=== PATIENT | female | born 1990 ===

== ENCOUNTER 2023-12-11 01:52 | Emergency (ER) | payer OTHER, SELFPAY ==
--- NOTE | ~2023-12-11 | CT_ITS ---
EXAMINATION: CT ABDOMEN AND PELVIS WITH CONTRAST CLINICAL INFORMATION: Reason for Exam severe nausea and pain after gastric sleeve COMPARISON: None available. TECHNIQUE: Multidetector volumetric images were obtained from the superior aspect of the liver through the pubic symphysis following administration 85 mL of Omnipaque 350 intravenous contrast. Sagittal and coronal reformatted images were obtained on the technologist's workstation. Oral contrast: No This CT examination was performed using dose optimization techniques as appropriate, variously including the following: *Automated exposure control *Adjustment of mA and/or kV according to patient size (this includes techniques or standardized protocols for targeted exams where dose is matched to indication/reason for exam; i.e. extremities or head) *Use of iterative reconstruction technique DLP: 890 mGy-cm FINDINGS: LUNG BASES: The visualized lung bases are unremarkable. LIVER, GALLBLADDER, AND BILIARY TREE: A small focal region of hypoattenuation adjacent to the falciform ligament could be due to focal fatty infiltration or alterations in hepatic perfusion. The gallbladder is unremarkable with no evidence of radiopaque gallstones, gallbladder wall thickening, or obvious pericholecystic inflammatory changes. PANCREAS: Unremarkable. SPLEEN: Unremarkable. ADRENAL GLANDS: Unremarkable. KIDNEYS AND URETERS: Bilateral nephrograms are symmetric. No hydronephrosis or obstructing calculus identified. BLADDER: Mildly distended and grossly unremarkable. GASTROINTESTINAL TRACT: Suture line along the stomach in keeping with history of sleeve gastrectomy. No evidence of bowel obstruction or significant wall thickening. The appendix is unremarkable. No free fluid or free air is seen. ABDOMINAL WALL: No significant hernia is appreciated. LYMPH NODES: Normal. VASCULAR: Unremarkable. PELVIC VISCERA: Unremarkable for patient age. OSSEOUS STRUCTURES: Unremarkable. CT/CT abdomen pelvis w IV con IMPRESSION: No acute findings identified in the abdomen/pelvis.
[2023-12-11 02:04] VITALS: BP 152/87; PULSE 102; RESP 16; TEMP 36.5; O2SAT 100
[2023-12-11 02:13] VITALS: BMI 43.4
[2023-12-11 02:34] LABS: MANUAL DIFF FLAG NO
[2023-12-11 02:36] LABS: Basophils Percent Auto 0.4 % (0-2); Eosinophils Percent Auto 0.9 % (0-4); Hematocrit 43.1 % (37.0-47.0); Hemoglobin 14.2 g/dl (12.0-16.0); Imm Gran Abs Auto 0.01 X10*3/uL (0.00-0.03); Imm Gran Pct Auto 0.2 % (0.0-0.4); Lymphocytes Absolute Auto 1.6 X10*3/uL (1.2-4.9); Lymphocytes Percent Auto 35.5 % (20-40); Mean Corpuscular HGB Conc 32.9 g/dl (31.0-35.0); Mean Corpuscular Hemoglobin 29.1 pg (27.0-33.0); Mean Corpuscular Volume 88.3 fL (80.0-98.0); Monocytes Absolute Auto 0.4 X10*3/uL (0.1-1.2); Monocytes Percent Auto 9.7 % (2-11); Neutrophils Absolute Auto 2.4 x10*3/uL (2.0-8.3); Neutrophils Percent Auto 53.3 % (45-73); Platelet Count 137 X10*3/uL (160-400); Red Blood Count 4.88 X10*6/uL (4.20-5.50); Red Cell Distribution Width 15.4 % (11.0-16.0); White Blood Count 4.5 X10*3/uL (4.8-10.8)
--- NOTE | 2023-12-11 02:39 | PC.NURSE ---
assumed care of pt at 0230
[2023-12-11] MEDS: ondansetron HCL 4 MG/2 ML VIAL IVPUSH (02:48)
[2023-12-11] MEDS: 0.9 % Sodium Chloride 1,000 ML 999 ML IV ×3 (02:48→03:52)
--- NOTE | 2023-12-11 02:50 | ED_ITS ---
HPI - Nausea/Vomiting/Diarrhea General Chief complaint: Nausea/Vomiting/Diarrhea Stated complaint: Nausea/Recent bypass surgery Time Seen by Provider: 12/11/23 02:16 Source: patient Mode of arrival: ambulatory Limitations: no limitations History of Present Illness HPI Narrative: 33 yo female s/p laparascopic gastric sleeve with Dr. Murillo at [facility] states she did well until this past week when her nausea has become so bad she can barely drink water or her shakes. She feels weak and tired. Gets dizzy when she stands. She is passing gas has not had BM. Taking her tylenol, pantoprazole as Rx and miralax but not having BMs. MD elicited complaint: nausea Onset (ago): week(s) (1) Associated nausea: Yes Associated abdominal pain: No Severity: severe Exacerbating factors: eating Relieving factors: none Associated symptoms: loss of appetite, malaise, nausea/vomiting, weakness and other (dizziness) Related Data Previous Rx's ?Medication ?Instructions ?Recorded ondansetron 4 mg disintegrating 4 mg PO Q8H PRN nausea and 12/11/23 tablet vomiting #20 tabs Allergies Allergy/AdvReac Type Severity Reaction Status Date / Time cephalexin [From KEFLEX] Allergy Unknown RASH Verified 12/11/23 02:15 penicillin G Allergy Unknown Rash Verified 12/11/23 02:15 Penicillins [PENICILLINS] Allergy Unknown RASH Verified 12/11/23 02:15 Review of Systems 2 Review of Systems: Constitutional : No Weight loss, No Fever, No Chills ENT/Mouth : No sore throat, No Rhinorrhea Eyes: No Swelling, No Redness Cardiovascular : No Chest Pain, No SOB, NoEdema Respiratory : No Cough, No Sputum, No Wheezing Gastrointestinal : Positive Nausea, no Vomiting, no Diarrhea, no abdominal Pain, No Hematochezia, No Melena Genitourinary : No Dysuria, No Urinary Frequency, No Hematuria, No Urgency Musculoskeletal : No joint pain, No Myalgias, No Joint Swelling Skin : No Skin Lesions, No rash Neuro : pos Weakness, No Numbness, pos Dizziness, No Headache Psych : No Anxiety/Panic, No Depression All other systems reviewed and are negative. Gastrointestinal: Gastrointestinal: Reports nausea PMFSH Past Medical History Attestation statement: The following information was validated with the patient. Source: old records reviewed Medical History (Updated 12/11/23 @ 06:00 by Mary Carmen Amezcua DO) Obesity Surgical History (Updated 12/11/23 @ 02:53 by Mary Carmen Amezcua DO) S/P gastric sleeve procedure Social History Social History (Updated 12/11/23 @ 02:53 by Mary Carmen Amezcua DO) Patient Tobacco Use Status: Never used Tobacco Smoked in Last 30 Days: No Advance Directives: No Advance Directives Information Provided: Yes Do you have a plan to hurt others: No Plan Patient : No Physical Exam 2 Vital Signs: Vital Signs: Last Vital Signs Temp 97.9 F 12/11/23 04:01 Pulse 77 12/11/23 04:01 Resp 18 12/11/23 04:01 BP 139/51 L 12/11/23 04:01 Pulse Ox 100 12/11/23 04:01 O2 Del Method Room Air 12/11/23 04:01 BMI result Body Mass Index 43.4 Appearance: Alert. Oriented X3. No acute distress. Eyes: Pupils equal, round and reactive to light. ENT: Pharynx very dry MM Neck: Normal inspection. Neck supple. CVS: Normal heart rate and rhythm. Pulses normal. Respiratory: No respiratory distress. Breath sounds normal. Abdomen: Soft and nontender. incisions are c/d/i Skin: Skin warm and dry. pale skin color. poor skin turgor. Extremities: No lower extremity edema. No calf ttp Neuro: Oriented X 3. No motor deficit. No sensory deficit. Medications Administered Generic Name Dose Route Start Last Admin Trade Name Freq PRN Reason Stop Dose Admin Dextrose/Sodium Chloride 1,000 mls @ 100 mls/hr 12/11/23 03:00 12/11/23 03:52 D5ns IVCONT 50 mls/hr .Q10H JACEK Administration Discontinued Medications Generic Name Dose Route Start Last Admin Trade Name Freq PRN Reason Stop Dose Admin Sodium Chloride 1,000 mls @ 999 mls/hr 12/11/23 02:30 12/11/23 02:48 Ns IV 12/11/23 03:30 999 mls/hr .Q1H1M JACEK Administration Sodium Chloride 1,000 mls @ 999 mls/hr 12/11/23 02:30 12/11/23 03:52 Ns IV 12/11/23 03:30 999 mls/hr .Q1H1M JACEK Administration Sodium Chloride 1,000 mls @ 999 mls/hr 12/11/23 02:23 12/11/23 02:48 Ns IV 12/11/23 03:23 999 mls/hr .Q1H1M ONE Administration Iohexol 100 ml 12/11/23 03:26 12/11/23 03:26 Iohexol 350 Mg/Ml 100 Ml Infus..Btl IV 12/11/23 03:27 85 ml ONCE ONE Administration Ondansetron HCl 4 mg 12/11/23 02:17 12/11/23 02:48 Ondansetron Hcl 4 Mg/2 Ml Vial IVPUSH 12/11/23 02:18 4 mg ONCE ONE Administration Pantoprazole Sodium 40 mg 12/11/23 05:09 12/11/23 05:37 Pantoprazole Sodium 40 Mg/10 Ml Vial IVPUSH 12/11/23 05:10 40 mg ONCE ONE Administration Medical Decision Making Medical Decision Making [facility] Narrative: 33 yo female with recent laparascopic gastric sleeve 11/13 at [facility] here with severe nausea at this time will need basic labs, IVF x 3L, CT scan for any issues with surgery she denies infectious symptoms. She is not able to tolerate oral contrast. Differential Diagnosis Differential Diagnoses: The differential diagnosis associated with the presentation includes dehydration, hernia, obstruction, esophagitis Admission/Observation Consideration of admission/observation: Escalation of care including admission/observation considered K repleted, tolerating PO repeat labs reassuring, tolerating PO at this time stable for DC plans to call Dr. Murillo's office this AM Lab Data [facility] Lab Attestation statement: I reviewed the patient's lab results. 12/11/23 02:31 12/11/23 05:46 Labs: Lab Results 12/11/23 12/11/23 12/11/23 Range/Units 02:31 03:27 05:46 WBC 4.5 L (4.8-10.8) X10*3/uL RBC 4.88 (4.20-5.50) X10*6/uL Hgb 14.2 (12.0-16.0) g/dl Hct 43.1 (37.0-47.0) % MCV 88.3 (80.0-98.0) fL MCH 29.1 (27.0-33.0) pg MCHC 32.9 (31.0-35.0) g/dl RDW 15.4 (11.0-16.0) % Plt Count 137 L (160-400) X10*3/uL MPV 12.0 (9.4-12.3) fL Immature Gran % (Auto) 0.2 (0.0-0.4) % Neut % (Auto) 53.3 (45-73) % Lymph % (Auto) 35.5 (20-40) % [place] % (Auto) 9.7 (2-11) % Eos % (Auto) 0.9 (0-4) % Baso % (Auto) 0.4 (0-2) % Lymph # (Auto) 1.6 (1.2-4.9) X10*3/uL [place] # (Auto) 0.4 (0.1-1.2) X10*3/uL Eos # (Auto) 0.0 (0.0-0.4) X10*3/uL Baso # (Auto) 0.0 (0.0-0.2) X10*3/uL Abs Immat Gran (auto) 0.01 (0.00-0.03) X10*3/uL Absolute Neuts (auto) 2.4 (2.0-8.3) x10*3/uL Absolute Nucleated RBC 0.000 (0.0-0.012) X10*3/uL Nucleated RBC % (auto) 0.0 (0.0-0.2) /100WBC Sodium 140 140 (135-145) mmol/L Potassium 3.2 L 3.3 (3.3-5.1) mmol/L Chloride 101 108 (96-108) mmol/L Carbon Dioxide 19 L 18 L (22-29) mmol/L Anion Gap 23 H 17 (12-20) BUN 6 L 5 L (9-16) mg/dL Creatinine 0.78 0.62 (0.5-1.4) mg/dL Estim Creat Clear Calc 134.5 169.2 Estimated GFR > 60 > 60 Random Glucose 95 72 (60-115) mg/dL Calcium 9.7 8.0 L D (8.4-10.2) mg/dL Magnesium 1.7 (1.6-2.6) mg/dL Total Bilirubin 0.8 (0.0-1.0) mg/dL Direct Bilirubin 0.3 (0.0-0.5) mg/dL AST 32 H (5-31) U/L ALT 32 H (0-31) U/L Alkaline Phosphatase 61 (39-117) U/L Total Protein 7.6 (6.5-8.0) g/dL Albumin 4.2 (3.5-5.0) g/dL Lipase 49 (8-78) U/L Urine Color Yellow Urine Appearance Cloudy Urine pH 5.5 (5.0-9.0) Ur Specific [place] >= 1.030 H (1.005-1.025) Urine Protein 100 (2+) H (Neg-Trace) mg/dL Urine Glucose (UA) Negative (Negative) mg/dL Urine Ketones >=160 (Negative) mg/dL Urine Blood Trace H (Negative) Urine Nitrite Negative (Negative) Ur Leukocyte Esterase Negative (Negative) Urine RBC 3-5 H (0-2) /HPF Urine WBC 0-5 (0-5) /HPF Ur Squamous Epith Cells 11-20 (0-2) /HPF Urine Bacteria Trace (None Seen) Hyaline Casts 11-20 (0-2) /LPF Independent Interpretation I performed an independent interpretation of an: CT Scan (no acute post surgical issue) Radiology Impression Discussion of test interpretation with radiology: I have reviewed the radiologist's reading. Critical Care Time Critical Care Time Critical Care Time: Yes Total Critical Care Time: 60 Attestation: 3L of IVF, repeat labs, repeat assessments, volume resuscitation I attest to this time spent taking care of the patient Discharge Plan Discharge Clinical Impression: Acute dehydration, Acute hypokalemia, Nausea Patient Disposition: Home, Self-Care Instructions: Dehydration (ED), Hypokalemia (ED), Acute Nausea and Vomiting (ED) Additional Instructions: you were given 3 bags of IVF for dehydration in the ER today. you were also give IV protonix so you do not need to take your pantoprazole today. Your urine was very dehydrated. Your CT scan was normal no acute findings. please follow up with Dr. Murillo's office today. return for any worsening symptoms or concerns. stay hydrated Prescriptions: New ondansetron 4 mg tablet,disintegrating 4 mg PO Q8H PRN (Reason: nausea and vomiting) Qty: 20 0RF Print Language: Anguillan
[2023-12-11 02:52] LABS: Alanine Aminotransferase 32 U/L (0-31); Albumin Level 4.2 g/dL (3.5-5.0); Alkaline Phosphatase 61 U/L (39-117); Anion Gap 23 (12-20); Aspartate Amino Transferase 32 U/L (5-31); Bilirubin Direct 0.3 mg/dL (0.0-0.5); Bilirubin Total 0.8 mg/dL (0.0-1.0); Blood Urea Nitrogen 6 mg/dL (9-16); Calcium 9.7 mg/dL (8.4-10.2); Carbon Dioxide 19 mmol/L (22-29); Chloride 101 mmol/L (96-108); Creatinine Clr Calc Pharmacy 134.5; Estimated Glomerular Filt Rate > 60; Glucose Random 95 mg/dL (60-115); Lipase 49 U/L (8-78); Magnesium 1.7 mg/dL (1.6-2.6); Potassium 3.2 mmol/L (3.3-5.1); Sodium 140 mmol/L (135-145); Total Protein 7.6 g/dL (6.5-8.0)
[2023-12-11] MEDS: iohexoL 350 MG/ML 100 ML INFUS..BTL IV (03:26)
[2023-12-11 03:33] LABS: Appearance Urine Cloudy; Color Urine Yellow; Glucose Urine UA Negative (Negative); Leukocyte Esterase Urine Negative (Negative); Nitrite Urine Negative (Negative); PH 5.5 (5.0-9.0); Specific Gravity - Urine >= 1.030 (1.005-1.025); UMIC TRIGGER UACC YES; Urine Blood Trace (Negative); Urine Ketones >=160 mg/dL (Negative); Urine Protein 100 (2+) mg/dL (Neg-Trace)
[2023-12-11 03:46] LABS: Bacteria Urine Trace (None Seen); WBC Urine 0-5 /HPF (0-5)
[2023-12-11] MEDS: Dextrose 5 % and 0.9 % NaCl 1,000 ML 50 ML IVCONT (03:52)
[2023-12-11 04:01] VITALS: BP 139/51; PULSE 77; RESP 18; TEMP 36.6; O2SAT 100
[2023-12-11] MEDS: Pantoprazole Sodium 40 MG/10 ML VIAL IVPUSH (05:37)
[2023-12-11 06:05] LABS: Anion Gap 17 (12-20); Blood Urea Nitrogen 5 mg/dL (9-16); Carbon Dioxide 18 mmol/L (22-29); Chloride 108 mmol/L (96-108); Creatinine Clr Calc Pharmacy 169.2; Estimated Glomerular Filt Rate > 60; Glucose Random 72 mg/dL (60-115); Potassium 3.3 mmol/L (3.3-5.1); Sodium 140 mmol/L (135-145)
[2023-12-11] MEDS: Potassium Chloride Packet 20 MEQ PACKET 40 MEQ PO (06:37)
[2023-12-11 06:46] VITALS: BP 124/60; PULSE 88; RESP 18; TEMP 36.6; O2SAT 99
== END 2023-12-11 07:03 | disposition home or self-care (01) ==
PROVIDERS: Emergency Provider Emergency Medicine; PCP Internal Medicine
DX: E86.0 Dehydration (principal); E87.6 Hypokalemia; R11.0 Nausea; Z98.84 Bariatric surgery status
CPT/HCPCS: 36415; 74177; 80048; 80076; 81001; 83690; 83735; 85025; 96374; 96375; 99284; C9113; J2405; Q9967

== ENCOUNTER 2024-01-05 00:56 | Emergency (ER) | payer OTHER, SELFPAY ==
--- NOTE | ~2024-01-05 | CT_ITS ---
EXAMINATION: CT ABDOMEN AND PELVIS WITHOUT CONTRAST CLINICAL INFORMATION: Flank pain and hematuria. COMPARISON: None available. TECHNIQUE: Multidetector volumetric imaging was performed from the superior aspect of the liver through the pubic symphysis. Sagittal and coronal reformatted images were obtained on the technologist's workstation. This CT examination was performed using dose optimization techniques as appropriate, variously including the following: *Automated exposure control *Adjustment of mA and/or kV according to patient size (this includes techniques or standardized protocols for targeted exams where dose is matched to indication/reason for exam; i.e. extremities or head) *Use of iterative reconstruction technique DLP: 938 mGy-cm FINDINGS: LUNG BASES: The visualized lung bases are unremarkable. LIVER, GALLBLADDER, AND BILIARY TREE: The liver is normal in size, shape, and attenuation. No focal hepatic lesion or biliary ductal dilatation is present. The gallbladder is unremarkable with no evidence of radiopaque gallstones, gallbladder wall thickening, or obvious pericholecystic inflammatory changes. PANCREAS: Unremarkable. SPLEEN: Unremarkable. ADRENAL GLANDS: Unremarkable. KIDNEYS AND URETERS: The kidneys are normal in size, shape, and attenuation. There is mild right hydronephrosis and hydroureter extending into the pelvis to the level of a 2 mm calculus right ureterovesicular junction. BLADDER: Unremarkable. GASTROINTESTINAL TRACT: The small and large bowel are unremarkable. The appendix is unremarkable. ABDOMINAL WALL: No significant hernia is appreciated. LYMPH NODES: Normal. VASCULAR: Unremarkable. PELVIC VISCERA: Unremarkable. OSSEOUS STRUCTURES: Unremarkable. CT/CT abdomen pelvis wo IV con IMPRESSION: Mild right hydronephrosis and hydroureter extending into the pelvis to the level of a 2 mm calculus at the right ureterovesicular junction. Fleischner guidelines were followed.
[2024-01-05 01:57] VITALS: BP 138/80; PULSE 65; RESP 20; TEMP 36.4; O2SAT 100; BMI 40.9
--- NOTE | 2024-01-05 02:11 | MHC.EDTECH ---
PATIENT BLOOD DRAWN AND URINE SAMPLE COLLECTED AND SENT TO LAB .
[2024-01-05 02:15] LABS: Basophils Percent Auto 0.2 % (0-2); Eosinophils Absolute Auto 0.1 X10*3/uL (0.0-0.4); Eosinophils Percent Auto 1.2 % (0-4); Hematocrit 41.7 % (37.0-47.0); Hemoglobin 13.6 g/dl (12.0-16.0); Imm Gran Abs Auto 0.01 X10*3/uL (0.00-0.03); Imm Gran Pct Auto 0.2 % (0.0-0.4); Lymphocytes Absolute Auto 1.5 X10*3/uL (1.2-4.9); Lymphocytes Percent Auto 26.4 % (20-40); MANUAL DIFF FLAG NO; Mean Corpuscular HGB Conc 32.6 g/dl (31.0-35.0); Mean Corpuscular Hemoglobin 29.6 pg (27.0-33.0); Mean Corpuscular Volume 90.7 fL (80.0-98.0); Mean Platelet Volume 12.2 fL (9.4-12.3); Monocytes Absolute Auto 0.6 X10*3/uL (0.1-1.2); Monocytes Percent Auto 10.2 % (2-11); Neutrophils Absolute Auto 3.5 x10*3/uL (2.0-8.3); Neutrophils Percent Auto 61.8 % (45-73); Platelet Count 132 X10*3/uL (160-400); Red Cell Distribution Width 16.8 % (11.0-16.0); White Blood Count 5.7 X10*3/uL (4.8-10.8)
[2024-01-05 02:17] LABS: Appearance Urine Cloudy; Color Urine Dark Yellow; Glucose Urine UA Negative (Negative); Leukocyte Esterase Urine Negative (Negative); Nitrite Urine Negative (Negative); Specific Gravity - Urine >= 1.030 (1.005-1.025); UMIC TRIGGER UACC YES; UPreg QC Valid YES; Urine Blood Small (1+) (Negative); Urine Ketones 80 mg/dL (Negative); Urine Pregnancy NEGATIVE (NEGATIVE); Urine Protein Trace mg/dL (Neg-Trace)
[2024-01-05 02:29] LABS: Alanine Aminotransferase 69 U/L (0-31); Albumin Level 4.3 g/dL (3.5-5.0); Alkaline Phosphatase 59 U/L (39-117); Anion Gap 17 (12-20); Aspartate Amino Transferase 34 U/L (5-31); Bilirubin Direct 0.4 mg/dL (0.0-0.5); Bilirubin Total 1.2 mg/dL (0.0-1.0); Blood Urea Nitrogen 9 mg/dL (9-16); Calcium 9.5 mg/dL (8.4-10.2); Carbon Dioxide 21 mmol/L (22-29); Chloride 105 mmol/L (96-108); Creatinine Clr Calc Pharmacy 128.4; Estimated Glomerular Filt Rate > 60; Glucose Random 104 mg/dL (60-115); Lipase 45 U/L (8-78); Potassium 3.8 mmol/L (3.3-5.1); Sodium 139 mmol/L (135-145); Total Protein 7.3 g/dL (6.5-8.0)
[2024-01-05 03:11] LABS: Bacteria Urine None Seen (None Seen); Calcium Oxalate Crystals Urine Present; WBC Urine 0-5 /HPF (0-5)
[2024-01-05 04:38] VITALS: BP 143/82; PULSE 75; RESP 16; TEMP 36.3; O2SAT 95
--- NOTE | 2024-01-05 06:03 | ED.GENADULT ---
HPI - General Adult General Chief complaint: Abdominal Pain Stated complaint: rt side pain goes to the back Time Seen by Provider: 01/05/24 05:57 History of Present Illness HPI narrative: The patient is a 33-year-old female who says that at around 22:00 this evening, approximately 4 hours prior to arrival, she developed pain in her right lower back radiating into her right groin. She quite uncomfortable because of this this pain. She had some loose stool. She denies urinary discomfort. She does not think she has had a fever. No nausea or vomiting. She has never had pain like this before. Related Data Previous Rx's ?Medication ?Instructions ?Recorded ondansetron 4 mg disintegrating 4 mg PO Q8H PRN nausea and 12/11/23 tablet vomiting #20 tabs ibuprofen 600 mg tablet 600 mg PO Q6H PRN pain #14 tabs 01/05/24 ondansetron 4 mg disintegrating 4 mg PO Q6H PRN nausea and 01/05/24 tablet vomiting #10 tabs oxycodone 5 mg tablet 5 mg PO Q6H PRN pain #12 tabs 01/05/24 Allergies Allergy/AdvReac Type Severity Reaction Status Date / Time cephalexin [From KEFLEX] Allergy Unknown RASH Verified 01/05/24 01:59 penicillin G Allergy Unknown Rash Verified 01/05/24 01:59 Penicillins [PENICILLINS] Allergy Unknown RASH Verified 01/05/24 01:59 Review of Systems Review of Systems: Yes all other systems are reviewed and are negative [facility] Past Medical History Medical History (Updated 01/05/24 @ 06:12 by Piop Barfield MD) Obesity Surgical History (Updated 12/11/23 @ 02:53 by Mary Carmen Amezcua DO) S/P gastric sleeve procedure Social History Social History (Updated 12/11/23 @ 02:53 by Mary Carmen Amezcua DO) Patient Tobacco Use Status: Never used Tobacco Advance Directives: No Advance Directives Information Provided: Yes Do you have a plan to hurt others: No Plan Physical Exam ED Vital Signs: Vital Signs - 24 hr 01/05/24 01:57 01/05/24 04:38 01/05/24 07:34 Temperature 97.6 F 97.3 F 97.2 F Pulse Rate 65 75 73 Respiratory Rate 20 16 16 Blood Pressure 138/80 143/82 H 118/65 Pulse Oximetry 100 95 100 Oxygen Delivery Method Room Air Room Air Room Air BMI result Body Mass Index 40.9 Const Other: The patient is awake, alert, pleasant, cooperative. She looks mildly uncomfortable. HENMT Other: Face is symmetrical. Mucous membranes moist. Eyes Other: Pupils are round equal, conjunctivae clear Neck Other: Moving her neck easily Resp Effort & Inspection: normal respiratory effort Auscultation: clear to auscultation bilaterally Cardio Rate: regular rate Rhythm: regular rhythm Heart sounds: S1 normal heart sound present and S2 normal heart sound present GI Other: The abdomen is soft. There is some right-sided tenderness with bimanual palpation of the right kidney area. No rebound or guarding. Back/Spine/Pelvis Other: Right-sided CVA percussion tenderness Skin Other: The skin is dry and unremarkable Neuro Other: The patient is awake, alert, appropriate, mental status is normal. Grossly neurologically intact with a normal gait. Extrem Other: No peripheral edema Medications Administered Discontinued Medications Generic Name Dose Route Start Last Admin Trade Name Freq PRN Reason Stop Dose Admin Sodium Chloride 1,000 mls @ 999 mls/hr 01/05/24 06:15 01/05/24 07:35 Ns IV 01/05/24 07:15 Infused .Q1H1M JACEK Infusion Ketorolac Tromethamine 15 mg 01/05/24 06:03 01/05/24 06:36 Ketorolac Tromethamine 15 Mg/Ml Vial IVPUSH 01/05/24 06:04 15 mg ONCE ONE Administration Medical Decision Making Medical Decision Making [facility] Narrative: The patient is a 33-year-old female who presents with 4 hours of right-sided pain. Her presentation seemed suggestive of a possible ureteral stone. She had labs that showed a normal white count and differential, unremarkable basic metabolic panel, LFTs with mild transaminitis, and a urinalysis with 1+ blood and 3-5 red cells. No significant signs of infection. A CT scan of the abdomen and pelvis without contrast was done that showed a calculus at the right ureterovesicular junction (UVJ). The patient was given a dose of ketorolac with significant improvement in her pain. She was also given a L of IV normal saline. She felt considerably better. She will be discharged with prescriptions for ibuprofen, oxycodone, and ondansetron. She will be referred to Urology. Lab Data 01/05/24 02:09 01/05/24 02:09 Labs: Lab Results 01/05/24 01/05/24 Range/Units 02:07 02:09 WBC 5.7 (4.8-10.8) X10*3/uL RBC 4.60 (4.20-5.50) X10*6/uL Hgb 13.6 (12.0-16.0) g/dl Hct 41.7 (37.0-47.0) % MCV 90.7 (80.0-98.0) fL MCH 29.6 (27.0-33.0) pg MCHC 32.6 (31.0-35.0) g/dl RDW 16.8 H (11.0-16.0) % Plt Count 132 L (160-400) X10*3/uL MPV 12.2 (9.4-12.3) fL Immature Gran % (Auto) 0.2 (0.0-0.4) % Neut % (Auto) 61.8 (45-73) % Lymph % (Auto) 26.4 (20-40) % [place] % (Auto) 10.2 (2-11) % Eos % (Auto) 1.2 (0-4) % Baso % (Auto) 0.2 (0-2) % Lymph # (Auto) 1.5 (1.2-4.9) X10*3/uL [place] # (Auto) 0.6 (0.1-1.2) X10*3/uL Eos # (Auto) 0.1 (0.0-0.4) X10*3/uL Baso # (Auto) 0.0 (0.0-0.2) X10*3/uL Abs Immat Gran (auto) 0.01 (0.00-0.03) X10*3/uL Absolute Neuts (auto) 3.5 (2.0-8.3) x10*3/uL Absolute Nucleated RBC 0.000 (0.0-0.012) X10*3/uL Nucleated RBC % (auto) 0.0 (0.0-0.2) /100WBC Sodium 139 (135-145) mmol/L Potassium 3.8 (3.3-5.1) mmol/L Chloride 105 (96-108) mmol/L Carbon Dioxide 21 L (22-29) mmol/L Anion Gap 17 (12-20) BUN 9 (9-16) mg/dL Creatinine 0.79 (0.5-1.4) mg/dL Estim Creat Clear Calc 128.4 Estimated GFR > 60 Random Glucose 104 (60-115) mg/dL Calcium 9.5 D (8.4-10.2) mg/dL Total Bilirubin 1.2 H (0.0-1.0) mg/dL Direct Bilirubin 0.4 (0.0-0.5) mg/dL AST 34 H (5-31) U/L ALT 69 H (0-31) U/L Alkaline Phosphatase 59 (39-117) U/L Total Protein 7.3 (6.5-8.0) g/dL Albumin 4.3 (3.5-5.0) g/dL Lipase 45 (8-78) U/L Urine Color Dark Yellow Urine Appearance Cloudy Urine pH 5.0 (5.0-9.0) Ur Specific [place] >= 1.030 H (1.005-1.025) Urine Protein Trace (Neg-Trace) mg/dL Urine Glucose (UA) Negative (Negative) mg/dL Urine Ketones 80 (Negative) mg/dL Urine Blood Small (1+) H (Negative) Urine Nitrite Negative (Negative) Ur Leukocyte Esterase Negative (Negative) Urine RBC 3-5 H (0-2) /HPF Urine WBC 0-5 (0-5) /HPF Ur Squamous Epith Cells 11-20 (0-2) /HPF Calcium Oxalate Crystal Present Urine Bacteria None Seen (None Seen) Hyaline Casts 3-5 (0-2) /LPF Urine Test NEGATIVE (NEGATIVE) Discharge Plan Discharge Clinical Impression: Right ureteral calculus, Ureteral colic Patient Disposition: Home, Self-Care Instructions: Ureteral Stones (ED) Additional Instructions: Your CT scan today showed that you have a 2 mm kidney stone in your right ureter just where it meets the bladder. 2 mm stones usually pass on their own. I have sent a prescription for ibuprofen and oxycodone which you may use that home as needed for pain. Do not use the oxycodone if you plan on driving and do not drive if you have taken an oxycodone. My hope is that at some point over the next couple of days your pain will simply seemed to stop. Please plan on following up with the urology office. Urologists are the specialists who manage kidney stones. Please increase your water intake every day. Also follow up with your regular doctor. Return to the emergency room if you feel significantly worse. Prescriptions: New ibuprofen 600 mg tablet 600 mg PO Q6H PRN (Reason: pain) Qty: 14 0RF ondansetron 4 mg tablet,disintegrating 4 mg PO Q6H PRN (Reason: nausea and vomiting) Qty: 10 0RF oxycodone 5 mg tablet 5 mg PO Q6H PRN (Reason: pain) Qty: 12 0RF Rx Instructions: Partial Fill upon patient request. No Action ondansetron 4 mg tablet,disintegrating 4 mg PO Q8H PRN (Reason: nausea and vomiting) Qty: 20 0RF Referrals: Kwadwo Scott MD [Physician] - (First-time ureteral stone) Nikita Bhagat MD [Primary Care Provider] - (First-time kidney stone) Interventions: ED Discharge Assessment Last Done: 01/05/24 07:34 Discharge Date/Time: 01/05/24 07:35 Print Language: Thai
[2024-01-05] MEDS: 0.9 % Sodium Chloride 1,000 ML 999 ML IV (06:34)
[2024-01-05] MEDS: Ketorolac Tromethamine 15 MG/ML VIAL IVPUSH (06:36)
[2024-01-05 07:34] VITALS: BP 118/65; PULSE 73; RESP 16; TEMP 36.2; O2SAT 100
== END 2024-01-05 07:35 | disposition home or self-care (01) ==
PROVIDERS: Emergency Provider Emergency Medicine; PCP Internal Medicine
DX: N13.2 Hydronephrosis with renal and ureteral calculous obstruction (principal)
CPT/HCPCS: 36415; 74176; 80053; 81001; 81025; 82248; 83690; 85025; 96361; 96374; 99284; J1885

== ENCOUNTER 2024-02-22 10:24 | Outpatient (AMB) | payer OTHER, SELFPAY ==
--- NOTE | 2024-02-22 10:56 | MHC.OFFVIS ---
Intake Visit Reasons: nephrolithiasis Intake Note: Patient is present for nephrolithiasis Urology Medication:none Antibiotic Allergy:penicillins Blood Thinner:none Payroll And Benefits Assistant Required: No Allergies cephalexin [From KEFLEX] Allergy (Unknown, Verified 02/22/24 10:57) RASH penicillin G Allergy (Unknown, Verified 02/22/24 10:57) Rash Penicillins [PENICILLINS] Allergy (Unknown, Verified 02/22/24 10:57) RASH HPI Comments Details: Virginia is a 34-year-old female here for evaluation due to kidney stones. The patient was seen in the emergency room with right flank pain CT imaging noted a small ureteral stone with mild hydronephrosis. The patient thinks she may have passed the stone. I have discussed further evaluation with renal ultrasound and 24 hour urine.I have discussed diet modification to decrease risk of forming more kidney stones. I have discussed low oxalate diet and specific foods to avoid including certain green leafy vegetables, chocalate, nuts, tea, beets, rubarb; low sodium, decreased use of animal protein and the importance of hydration drinking up to 2-2.5 liters of fluids and use of adding lemon to water to increase citrate in the diet. [facility] Medical History Obesity Surgical History S/P gastric sleeve procedure Social History Patient Tobacco Use Status: Never used Tobacco Review of Systems Const All systems reviewed & are unremarkable except as noted in HPI and below Reports no additional complaints Eyes Reports no additional complaints ENT Reports no additional complaints Card Reports no additional complaints Resp Reports no additional complaints GI Reports no additional complaints Reports as per HPI Musc Reports no additional complaints Skin/Breast Reports system reviewed and no additional complaints, except as documented Neuro Reports no additional complaints Psych Reports no additional complaints Endo Reports no additional complaints Macho/Lymph Reports no additional complaints Aller/Immun Reports no additional complaints Physical Exam Const General: cooperative, healthy appearing and no acute distress Orientation/consciousness: patient oriented x3 HEENT Head: Yes normal to inspection, Yes normocephalic and Yes atraumatic Eyes Conjunctivae: conjunctivae normal Neck Neck: Yes normal visual inspection and Yes trachea midline Chest Chest palpation & inspection: normal inspection of the chest Resp Effort & Inspection: normal respiratory effort Cardio Rate: regular rate GI Inspection: Yes normal to inspection Skin General skin exam: no rashes or lesions noted Neuro General: patient oriented x3 Extrem General: No edema Psych Appearance: grossly normal Results AMB Urinalysis, Automated UA Leukoctes 15 [place]/uL Last Edit by JADE Paige on 02/22/24 11:07 UA Nitrite Negative Last Edit by JADE Paige on 02/22/24 11:07 UA Urobilinogen 0.2 mg/dL Last Edit by Cary Nixon CCM on 02/22/24 11:07 UA Protein 100 mg/dL Last Edit by Cary Nixon CCM on 02/22/24 11:07 UA pH 6.0 Last Edit by Cary Nixon CCM on 02/22/24 11:07 UA Blood 0 [place]/uL Last Edit by Cary Nixon CCM on 02/22/24 11:07 UA Specific [place] 1.020 Last Edit by Cary Nixon CCM on 02/22/24 11:07 UA Ketone Positive Last Edit by JADE Paige on 02/22/24 11:07 UA Bilirubin 1 mg/dL Last Edit by Cary Nixon CCM on 02/22/24 11:07 UA Glucose 100 mg/dL Last Edit by Cary Nixon [facility] on 02/22/24 11:07 Results Reviewed Results Reviewed: Laboratory Last Values Urine pH (Auto) 6.0 02/22/24 11:07 Specific [place] (Auto) 1.020 02/22/24 11:07 Urine Protein (Auto) 100 mg/dL 02/22/24 11:07 Glucose (UA)(Auto) 100 mg/dL 02/22/24 11:07 Urine Ketones (Auto) Positive 02/22/24 11:07 Urine Blood (Auto) 0 [place]/uL 02/22/24 11:07 Urine Nitrite (Auto) Negative 02/22/24 11:07 Urine Bilirubin (Auto) 1 mg/dL 02/22/24 11:07 Urine Urobilinogen (Auto) 0.2 mg/dL 02/22/24 11:07 Leukocyte Esterase (Auto) 15 [place]/uL 02/22/24 11:07 Date of Service: 01/05/24 EXAMINATION: CT ABDOMEN AND PELVIS WITHOUT CONTRAST CLINICAL INFORMATION: Flank pain and hematuria. COMPARISON: None available. TECHNIQUE: Multidetector volumetric imaging was performed from the superior aspect of the liver through the pubic symphysis. Sagittal and coronal reformatted images were obtained on the technologist's workstation. This CT examination was performed using dose optimization techniques as appropriate, variously including the following: *Automated exposure control *Adjustment of mA and/or kV according to patient size (this includes techniques or standardized protocols for targeted exams where dose is matched to indication/reason for exam; i.e. extremities or head) *Use of iterative reconstruction technique DLP: 938 mGy-cm FINDINGS: LUNG BASES: The visualized lung bases are unremarkable. LIVER, GALLBLADDER, AND BILIARY TREE: The liver is normal in size, shape, and attenuation. No focal hepatic lesion or biliary ductal dilatation is present. The gallbladder is unremarkable with no evidence of radiopaque gallstones, gallbladder wall thickening, or obvious pericholecystic inflammatory changes. PANCREAS: Unremarkable. SPLEEN: Unremarkable. ADRENAL GLANDS: Unremarkable. KIDNEYS AND URETERS: The kidneys are normal in size, shape, and attenuation. There is mild right hydronephrosis and hydroureter extending into the pelvis to the level of a 2 mm calculus right ureterovesicular junction. BLADDER: Unremarkable. GASTROINTESTINAL TRACT: The small and large bowel are unremarkable. The appendix is unremarkable. ABDOMINAL WALL: No significant hernia is appreciated. LYMPH NODES: Normal. VASCULAR: Unremarkable. PELVIC VISCERA: Unremarkable. OSSEOUS STRUCTURES: Unremarkable. IMPRESSION: Mild right hydronephrosis and hydroureter extending into the pelvis to the level of a 2 mm calculus at the right ureterovesicular junction. Assessment & Plan Assessment & Plan (1) Hydronephrosis, right: Code(s): N13.30 - Unspecified hydronephrosis Category: Medical (2) Ureteral stone: Code(s): N20.1 - Calculus of ureter Category: Medical Plan Right ureteral stone. Right hydronephrosis. Follow-up with renal ultrasound in 24 hour urine collection Orders: Orders AMB Urinalysis Automated 02/22/24 Z13.9 - Encounter for screening, unspecified Patient Instructions: The patient had an opportunity to ask questions regarding treatment plan. The patient expressed understanding and agreement with the above treatment plan. The patient is aware they should contact our office by phone for worsening of their current condition or the appearance of new symptoms. Compliance is encouraged with any medications and followup testing that is ordered. It is a privilege to be allowed the opportunity to participate in the urologic care of your patient. If you have any questions or concerns regarding treatment for the above conditions please do not hesitate to contact me. The office telephone contact is [phone]. This note is constructed in part using voice recognition software. While every effort has been made to ensure accuracy pharmacy tech customer service errors may have been included. Yours sincerely, Gordon Villeda MD Coding Level of Care Code New Pt Level 4 (99205) Diagnoses Hydronephrosis, right N13.30 Ureteral stone N20.1
== END 2024-02-22 11:54 | disposition home or self-care (01) ==
PROVIDERS: PCP Internal Medicine; Visit Provider Urology
DX: N13.30 Unspecified hydronephrosis (principal); N20.1 Calculus of ureter
CPT/HCPCS: 99204

== ENCOUNTER → 2024-02-22 10:24 | Outpatient (BNVA) | payer OTHER, SELFPAY | PROVIDERS: PCP Internal Medicine; Visit Provider Urology | DX: N13.2 Hydronephrosis with renal and ureteral calculous obstruction (principal) | CPT/HCPCS: 81003 ==

== ENCOUNTER 2024-05-29 14:47 | Outpatient (AMB) | payer OTHER, SELFPAY ==
--- NOTE | 2024-05-29 14:45 | MHC.OFFVIS ---
Intake Visit Reasons: 10w/US/[employer]/ R/S from 04/28/24 Intake Note: Patient is present for 10W/US/[facility] Urology Medication:NONE Antibiotic Allergy:PENICILLIS, CEPHALEXIN Blood Thinner:NONE Market Research Worker Required: No Allergies cephalexin [From KEFLEX] Allergy (Unknown, Verified 04/28/24 09:10) RASH penicillin G Allergy (Unknown, Verified 04/28/24 09:10) Rash Penicillins [PENICILLINS] Allergy (Unknown, Verified 04/28/24 09:10) RASH HPI Comments Details: Virginia is a 34-year-old female here for evaluation due to kidney stones. The patient was seen in the emergency room with right flank pain CT imaging noted a small ureteral stone with mild hydronephrosis. The patient thinks she may have passed the stone. I have discussed further evaluation with renal ultrasound and 24 hour urine.I have discussed diet modification to decrease risk of forming more kidney stones. I have discussed low oxalate diet and specific foods to avoid including certain green leafy vegetables, chocalate, nuts, tea, beets, rubarb; low sodium, decreased use of animal protein and the importance of hydration drinking up to 2-2.5 liters of fluids and use of adding lemon to water to increase citrate in the diet. [facility] [place] Medical History Obesity Surgical History S/P gastric sleeve procedure Social History Patient Tobacco Use Status: Never used Tobacco Telehealth Telehealth [facility]health [facility] Location of provider rendering services: practice address Location of patient: address on file Patient Identification confirmed using: Name, : Yes Telehealth method: video Patient verbally consented to treatment: Yes Patient verbally consented to billing insurance company: Yes Patient informed of any privacy concerns related to visit: Yes Assessment & Plan Assessment & Plan (1) Hydronephrosis, right: Code(s): N13.30 - Unspecified hydronephrosis Category: Medical (2) History of kidney stones: Code(s): Z87.442 - Personal history of urinary calculi Category: Medical Plan 24 hr urine completed pending resuls Orders: Orders US renal BI Today N13.30 - Unspecified hydronephrosis, Z87.442 - Personal history of urinary calculi Patient Instructions: The patient had an opportunity to ask questions regarding treatment plan. The patient expressed understanding and agreement with the above treatment plan. The patient is aware they should contact our office by phone for worsening of their current condition or the appearance of new symptoms. Compliance is encouraged with any medications and followup testing that is ordered. It is a privilege to be allowed the opportunity to participate in the urologic care of your patient. If you have any questions or concerns regarding treatment for the above conditions please do not hesitate to contact me. The office telephone contact is [phone]. This note is constructed in part using voice recognition software. While every effort has been made to ensure accuracy professor of finance errors may have been included. Yours sincerely, Gordon Villeda MD Coding Level of Care Code Tele Est Pt Level 3 (98992) Diagnoses Hydronephrosis, right N13.30 History of kidney stones Z87.442
== END 2024-05-29 15:55 | disposition home or self-care (01) ==
LOC: HO.HUSH 14:47
PROVIDERS: PCP Internal Medicine; Visit Provider Urology
DX: N13.30 Unspecified hydronephrosis (principal); Z87.442 Personal history of urinary calculi
CPT/HCPCS: 99213

== ENCOUNTER → 2024-05-29 14:47 | Outpatient (BNVA) | payer OTHER, SELFPAY | PROVIDERS: PCP Internal Medicine; Visit Provider Urology ==

== ENCOUNTER 2024-07-28 08:25 | Outpatient (REF) | payer OTHER, SELFPAY | END 2024-07-28 08:26 | disposition home or self-care (01) | LOC: HO.US 08:25 | PROVIDERS: PCP Internal Medicine; Visit Provider Urology | DX: N13.30 Unspecified hydronephrosis (principal); Z87.442 Personal history of urinary calculi | CPT/HCPCS: 76775 ==